=== PATIENT | female | born 1995 ===

== ENCOUNTER 2018-09-29 14:39 | Emergency (ER) | payer MEDICAID, OTHER ==
[2018-09-29 14:45] VITALS: BMI 24.9
[2018-09-29 14:48] VITALS: RESP 20; O2SAT 100
--- NOTE | 2018-09-29 15:24 | C.PDOC ---
History Of Present Illness 23 year old female presents to ED with complaint of headache, cough, fever, and body aches for the past 3 days. Patient states that she has a history of migraines. She also notes that she has not had her period in 6 months. Symptoms are associated with (+) nausea and photophobia. She denies diarrhea, abdominal pain, vomiting, and vision changes. HPI: Influenza Time Seen by Provider: 09/29/18 14:48 Chief Complaint: Flu-like Symptoms History Per: Patient Exam Limitations: no limitations Onset/Duration Of Symptoms: Days (3) Symptoms include: fever, headache, bodyaches, cough. denies: vomiting, diarrhea, blurry vision Past Medical History Reviewed: Historical Data, Nursing Documentation, Vital Signs Vital Signs: Last Vital Signs Temp 98.4 F 09/29/18 14:45 Pulse 109 H 09/29/18 14:45 Resp 20 09/29/18 14:45 BP 116/79 09/29/18 14:45 Pulse Ox 100 09/29/18 14:45 Primary Care Provider: FAMILY PROVIDER,NO - Medical History PMH: No Chronic Diseases Surgical History: Appendectomy Family History: States: Unknown Family Hx - Social History Hx Alcohol Use: No Hx Substance Use: No - Immunization History Hx Tetanus Toxoid Vaccination: No Hx Influenza Vaccination: No Hx Pneumococcal Vaccination: No Review Of Systems Except As Marked, All Systems Reviewed And Found Negative. Constitutional: Positive for: Fever, Malaise. Negative for: Chills, Weakness Eyes: Positive for: Other (photophobia). Negative for: Vision Change Respiratory: Positive for: Cough. Negative for: Sputum Gastrointestinal: Positive for: Nausea. Negative for: Vomiting, Abdominal Pain Physical Exam - Physical Exam Appears: Non-toxic, No Acute Distress Skin: Normal Color, Warm, Dry, No Rash Head: Atraumatic, Normacephalic Eye(s): bilateral: Normal Inspection, PERRL, EOMI Ear(s): Bilateral: Normal Oral Mucosa: Moist Throat: Normal, No Erythema, No Exudate Neck: Normal ROM, Supple Chest: Symmetrical, No Deformity, No Tenderness Cardiovascular: Rhythm Regular, No Friction Rub, No Murmur Respiratory: No Accessory Muscle Use, No Rales, No Rhonchi, No Wheezing Gastrointestinal/Abdominal: Soft, No Tenderness Back: Normal Inspection, No CVA Tenderness Extremity: Normal ROM, No Tenderness, Capillary Refill (<2 seconds), No Swelling Neurological/Psych: Oriented x3, Normal Speech, Normal Cognition, Normal Motor Gait: Steady Medical Decision Making Medical Decision Making: Initial Plan: flu swab Urine- HCG qualitative UA UA and CXR are negative at this time. On re-exam, the patient reports improvement of symptoms. Lungs are CTA, heart is RRR, abdomen is soft, non- tender and tolerating PO well. Follow up with the medical doctor within 1-2 days. return if worsened. - ECG O2 Sat by Pulse Oximetry: 100 (in RA) Pulse Ox Interpretation: Normal Disposition - Disposition Referrals: [facility] [Outside] [email or web address] [Outside] Disposition: HOME/ ROUTINE Disposition Time: 16:27 Condition: GOOD Additional Instructions: Follow up with the medical doctor within 1-2 days. return if worsened. Prescriptions: Ibuprofen [Motrin] 600 mg PO TID #21 tab Loratadine/Pseudoephedrine [Loratadine-D 24Hr Tablet] 1 each PO DAILY #10 tab.er.24h predniSONE [Prednisone] 20 mg PO BID #10 tab Instructions: Viral Syndrome (DC) Forms: [employer] (Lebanese) Print Language: CYMRO - Clinical Impression Clinical Impression: Influenza-like illness - PA / VAT CLEANER / Resident Statement MD/DO has reviewed & agrees with the documentation as recorded. (Liberty Armijo) - Scribe Statement The provider has reviewed the documentation as recorded by the Scribe (Liberty Armijo) All medical record entries made by the Scribe were at my direction and personally dictated by me. I have reviewed the chart and agree that the record accurately reflects my personal performance of the history, physical exam, medical decision making, and the department course for this patient. I have also personally directed, reviewed, and agree with the discharge instructions and disposition.
[2018-09-29 15:36] LABS: HCG,QUALITATIVE URINE NEGATIVE (NEGATIVE)
[2018-09-29 15:38] LABS: SQUAMOUS EPITHIAL 13 /hpf (0-5); URINE BACTERIA RARE (<OCC); URINE BILIRUBIN NEGATIVE (NEGATIVE); URINE BLOOD 2+ (NEGATIVE); URINE CLARITY Hazy (Clear); URINE COLOR Amber (YELLOW); URINE GLUCOSE (UA) NORMAL (Normal); URINE LEUKOCYTE ESTERASE TRACE Leu/uL (Negative); URINE PROTEIN 1+ mg/dL (NEGATIVE)
--- NOTE | 2018-09-29 16:22 | RAD ---
Date of service: 09/29/2018 HISTORY: Chest congestion COMPARISON: No prior. TECHNIQUE: Chest PA and lateral FINDINGS: LINES AND TUBES: None. LUNG AND PLEURA: The lungs are well inflated and clear. No pleural effusion or pneumothorax. HEART AND MEDIASTINUM: The heart is not enlarged. No aortic atherosclerotic calcifications present. The hilar and mediastinal contours are within normal limits. SKELETAL STRUCTURES: The bony structures are within normal limits for the patient's age. VISUALIZED UPPER ABDOMEN: Normal. OTHER FINDINGS: None. IMPRESSION: No active pulmonary disease.
[2018-09-29 16:30] VITALS: BP 106/70; PULSE 93; TEMP 98.7
== END 2018-09-29 16:37 | disposition home or self-care (01) ==
LOC: C.ER 14:39
DX: J11.1 Influenza due to unidentified influenza virus with other respiratory manifestations (principal); F17.210 Nicotine dependence, cigarettes, uncomplicated